=== PATIENT | male | born 1950 | race Caucasian/White ===

== ENCOUNTER 2020-08-25 07:53 | Outpatient (REF) | payer MEDICARE, OTHER, SELFPAY ==
[2020-08-25 09:19] LABS: Hematocrit 42.2 % (42-52); Hemoglobin 14.5 g/dl (14.0-18.0); Mean Corpuscular HGB Conc 34.4 g/dl (31.0-36.0); Mean Corpuscular Hemoglobin 28.9 pg (27.0-33.0); Mean Corpuscular Volume 84.1 fL (80-98); Mean Platelet Volume 11.1 fL (9.4-12.4); Platelet Count 214 X10*3/uL (160-400); Red Blood Count 5.02 X10*6/uL (4.60-5.80); Red Cell Distribution Width 12.7 % (11.0-16.0); White Blood Count 8.1 X10*3/uL (4.8-10.8)
[2020-08-25 09:37] LABS: Estimated Average Glucose 183 mg/dL
[2020-08-25 09:48] LABS: Alanine Aminotransferase 36 U/L (0-40); Albumin Level 4.4 g/dL (3.5-5.0); Alkaline Phosphatase 53 U/L (39-117); Anion Gap 14 (12-20); Aspartate Amino Transferase 19 U/L (5-37); Bilirubin Direct 0.2 mg/dL (0.0-0.5); Bilirubin Total 0.6 mg/dL (0.0-1.0); Blood Urea Nitrogen 18 mg/dL (9-16); Calcium 9.4 mg/dL (8.4-10.2); Carbon Dioxide 29 mmol/L (22-29); Chloride 101 mmol/L (96-108); Cholesterol 133 mg/dL; Estimated Glomerular Filt Rate > 60; Glucose Random 219 mg/dL (60-115); HDL Cholesterol 29 mg/dL; LDL Cholesterol Calculated 69 mg/dl; Potassium 4.6 mmol/l (3.3-5.1); Sodium 139 mmol/L (135-145); Total Protein 6.6 g/dL (6.5-8.0); Triglycerides 175 mg/dL
== END 2020-08-25 07:54 | disposition home or self-care (01) ==
LOC: HO.LAB 07:53
PROVIDERS: Visit Provider Internal Medicine
DX: E11.9 Type 2 diabetes mellitus without complications (principal)
CPT/HCPCS: 36415; 80048; 80061; 80076; 83036; 85027

== ENCOUNTER 2021-02-01 08:05 | Outpatient (REF) | payer MEDICARE, OTHER, SELFPAY ==
[2021-02-01 08:59] LABS: Hematocrit 42.4 % (42-52); Hemoglobin 14.6 g/dl (14.0-18.0); Mean Corpuscular HGB Conc 34.4 g/dl (31.0-36.0); Mean Corpuscular Hemoglobin 29.2 pg (27.0-33.0); Mean Corpuscular Volume 84.8 fL (80-98); Mean Platelet Volume 10.7 fL (9.4-12.4); Platelet Count 209 X10*3/uL (160-400); Red Cell Distribution Width 13.1 % (11.0-16.0); White Blood Count 9.4 X10*3/uL (4.8-10.8)
[2021-02-01 09:20] LABS: Appearance Urine CLEAR; Color Urine YELLOW; Glucose Urine UA NEG (NEG); Leukocyte Esterase Urine NEG (NEG); Nitrite Urine NEG (NEG); Urine Blood NEG (NEG); Urine Ketones NEG (NEG); Urine Protein NEG (NEG-TRACE)
[2021-02-01 09:30] LABS: Estimated Average Glucose 143 mg/dL; Hemoglobin A1c % 6.6 %
[2021-02-01 09:37] LABS: Alanine Aminotransferase 45 U/L (0-40); Albumin Level 4.7 g/dL (3.5-5.0); Alkaline Phosphatase 65 U/L (39-117); Anion Gap 13 (12-20); Aspartate Amino Transferase 27 U/L (5-37); Bilirubin Direct 0.2 mg/dL (0.0-0.5); Bilirubin Total 0.4 mg/dL (0.0-1.0); Blood Urea Nitrogen 23 mg/dL (9-16); Calcium 10.3 mg/dL (8.4-10.2); Carbon Dioxide 28 mmol/L (22-29); Chloride 100 mmol/L (96-108); Cholesterol 113 mg/dL; Estimated Glomerular Filt Rate > 60; Glucose Random 151 mg/dL (60-115); HDL Cholesterol 32 mg/dL; LDL Cholesterol Calculated 64 mg/dl; Potassium 4.2 mmol/L (3.3-5.1); Sodium 137 mmol/L (135-145); Total Protein 6.9 g/dL (6.5-8.0); Triglycerides 88 mg/dL
[2021-02-01 09:57] LABS: Thyroid Stimulating Hormone 2.43 uIU/mL (0.32-4.0)
[2021-02-01 10:36] LABS: Folate 9.9 ng/mL (> or = 4.0); Vitamin B12 229 pg/mL (200-900)
[2021-02-01 10:47] LABS: Creatinine Urine 46.02 mg/dL; Microalbum/Creatinine Ratio Ur 15.2 ug/mg cr
[2021-02-09 14:51] LABS: Vitamin D 25-OH, D2 <4 ng/mL; Vitamin D 25-OH, D3 45 ng/mL; Vitamin D 25-OH, Total 45 ng/mL (30-100)
== END 2021-02-01 08:06 | disposition home or self-care (01) ==
LOC: HO.LAB 08:05
PROVIDERS: PCP Internal Medicine; Visit Provider Internal Medicine
DX: E11.9 Type 2 diabetes mellitus without complications (principal)
CPT/HCPCS: 36415; 80048; 80061; 80076; 81003; 82043; 82306; 82607; 82746; 83036; 84443; 85027

== ENCOUNTER 2021-06-21 08:52 | Outpatient (REF) | payer MEDICARE, OTHER, SELFPAY ==
--- NOTE | ~2021-06-21 | XR_ITS ---
EXAMINATION: XR CHEST CLINICAL INFORMATION: R05.9 - Cough, unspecified COMPARISON: Chest radiograph 12/08/2019 TECHNIQUE: Frontal and 2 lateral views of the chest are obtained for 3 views. FINDINGS: The lungs are clear and there is no airspace consolidation or groundglass opacity or effusion. The heart is normal in size. The vascularity is normal. The hilar and mediastinal contours are normal. No acute bony abnormality. XR/XR chest 2V IMPRESSION: Unremarkable examination.
== END 2021-06-21 08:53 | disposition home or self-care (01) ==
LOC: HO.XRAY 08:52
PROVIDERS: PCP Internal Medicine; Visit Provider Internal Medicine
DX: R05.8 Other specified cough (principal); T46.4X5A Adverse effect of angiotensin-converting-enzyme inhibitors, initial encounter; E11.9 Type 2 diabetes mellitus without complications
CPT/HCPCS: 71046

== ENCOUNTER 2021-12-19 08:18 | Outpatient (REF) | payer MEDICARE, OTHER, SELFPAY ==
[2021-12-19 09:28] LABS: Hematocrit 41.4 % (42.0-52.0); Mean Corpuscular HGB Conc 33.8 g/dl (31.0-36.0); Mean Corpuscular Hemoglobin 27.8 pg (27.0-33.0); Mean Corpuscular Volume 82.1 fL (80.0-98.0); Mean Platelet Volume 10.4 fL (9.4-12.4); Platelet Count 262 X10*3/uL (160-400); Red Blood Count 5.04 X10*6/uL (4.60-5.80); White Blood Count 7.5 X10*3/uL (4.8-10.8)
[2021-12-19 09:44] LABS: Appearance Urine CLEAR; Color Urine YELLOW; Glucose Urine UA 100 MG/DL (NEG); Leukocyte Esterase Urine NEG (NEG); Nitrite Urine NEG (NEG); Specific Gravity - Urine 1.015 (1.005-1.025); Urine Blood NEG (NEG); Urine Ketones NEG (NEG); Urine Protein NEG (NEG-TRACE)
[2021-12-19 10:04] LABS: Alanine Aminotransferase 25 U/L (0-40); Albumin Level 4.2 g/dL (3.5-5.0); Alkaline Phosphatase 57 U/L (39-117); Anion Gap 12 (12-20); Aspartate Amino Transferase 20 U/L (5-37); Bilirubin Direct 0.2 mg/dL (0.0-0.5); Bilirubin Total 0.4 mg/dL (0.0-1.0); Blood Urea Nitrogen 16 mg/dL (9-16); Calcium 9.7 mg/dL (8.4-10.2); Carbon Dioxide 26 mmol/L (22-29); Chloride 105 mmol/L (96-108); Cholesterol 99 mg/dL; Estimated Glomerular Filt Rate > 60; Glucose Random 183 mg/dL (60-115); HDL Cholesterol 24 mg/dL; LDL Cholesterol Calculated 41 mg/dl; Potassium 5.4 mmol/L (3.3-5.1); Sodium 138 mmol/L (135-145); Total Protein 6.8 g/dL (6.5-8.0); Triglycerides 172 mg/dL
[2021-12-19 10:11] LABS: Estimated Average Glucose 160 mg/dL; Hemoglobin A1c % 7.2 %
[2021-12-19 10:22] LABS: Thyroid Stimulating Hormone 4.36 uIU/mL (0.32-4.0)
== END 2021-12-19 08:19 | disposition home or self-care (01) ==
LOC: HO.LAB 08:18
PROVIDERS: PCP Internal Medicine; Visit Provider Internal Medicine
DX: E11.9 Type 2 diabetes mellitus without complications (principal)
CPT/HCPCS: 36415; 80048; 80061; 80076; 81003; 83036; 84443; 85027

== ENCOUNTER 2022-11-26 09:29 | Outpatient (REF) | payer MEDICARE, OTHER, SELFPAY ==
[2022-11-26 10:31] LABS: Hematocrit 42.7 % (42.0-52.0); Hemoglobin 14.5 g/dl (14.0-18.0); Mean Corpuscular Hemoglobin 28.5 pg (27.0-33.0); Mean Corpuscular Volume 83.9 fL (80.0-98.0); Mean Platelet Volume 11.1 fL (9.4-12.4); Platelet Count 211 X10*3/uL (160-400); Red Blood Count 5.09 X10*6/uL (4.60-5.80); White Blood Count 7.4 X10*3/uL (4.8-10.8)
== END 2022-11-26 09:30 | disposition home or self-care (01) ==
LOC: HO.LAB 09:29
PROVIDERS: PCP Internal Medicine; Visit Provider Internal Medicine
DX: E11.9 Type 2 diabetes mellitus without complications (principal)
CPT/HCPCS: 36415; 85027

== ENCOUNTER 2022-11-27 09:23 | Outpatient (REF) | payer MEDICARE, OTHER, SELFPAY ==
[2022-11-27 10:58] LABS: Alanine Aminotransferase 42 U/L (0-40); Albumin Level 4.5 g/dL (3.5-5.0); Alkaline Phosphatase 64 U/L (39-117); Anion Gap 17 (12-20); Aspartate Amino Transferase 22 U/L (5-37); Bilirubin Direct 0.2 mg/dL (0.0-0.5); Bilirubin Total 0.5 mg/dL (0.0-1.0); Blood Urea Nitrogen 18 mg/dL (9-16); Calcium 9.8 mg/dL (8.4-10.2); Carbon Dioxide 23 mmol/L (22-29); Chloride 103 mmol/L (96-108); Cholesterol 107 mg/dL; Estimated Glomerular Filt Rate > 60; Glucose Random 273 mg/dL (60-115); HDL Cholesterol 25 mg/dL; LDL Cholesterol Calculated 36 mg/dl; Potassium 4.7 mmol/L (3.3-5.1); Sodium 138 mmol/L (135-145); Total Protein 6.7 g/dL (6.5-8.0); Triglycerides 232 mg/dL
== END 2022-11-27 09:24 | disposition home or self-care (01) ==
LOC: HO.LAB 09:23
PROVIDERS: PCP Internal Medicine; Visit Provider Internal Medicine
DX: E11.9 Type 2 diabetes mellitus without complications (principal)
CPT/HCPCS: 36415; 80048; 80061; 80076

== ENCOUNTER 2023-01-14 08:33 | Outpatient (REF) | payer MEDICARE, OTHER, SELFPAY ==
[2023-01-14 09:09] LABS: Estimated Average Glucose 174 mg/dL; Hemoglobin A1c % 7.7 %
== END 2023-01-14 08:34 | disposition home or self-care (01) ==
LOC: HO.LAB 08:33
PROVIDERS: PCP Internal Medicine; Visit Provider Internal Medicine
DX: E11.9 Type 2 diabetes mellitus without complications (principal)
CPT/HCPCS: 36415; 83036

== ENCOUNTER 2023-02-06 14:05 | Outpatient (AMB) | payer MEDICARE, OTHER, SELFPAY ==
--- NOTE | 2023-02-06 14:16 | A.OFFPC_ITS ---
Vital Signs 02/06/23 14:19 Height 5 ft 8 in Weight 213 lb 4 oz BMI 32.4 BP 130/70 Blood Pressure Location Lt brachial Position Sitting Pulse 76 Pulse Source Pulse Oximeter Pulse Oximetry (%) 90 L Oxygen Delivery Method Room Air Intake Visit Reasons: 6m f/u Intake Note: Patient is here to follow up on DM. Warehouse Team Leader Required: No Senior Cost Analyst: Not Required per policy Accompanied by: Self / Same As Patient Allergies No Known Allergies [No Known Allergies*] Allergy (Verified 02/21/23 16:46) Medication List - Last Reconciled 02/21/23 by Jem Gonzales MD atorvastatin 10 mg PO BEDTIME blood sugar diagnostic (FreeStyle Lite Strips) test daily blood-glucose meter (FreeStyle Lite Meter kit) test daily empagliflozin (Jardiance) 25 mg PO DAILY glipizide ER 5 mg PO DAILY lancets (FreeStyle Lancets) test daily metformin ER 1,000 mg (2 x 500 mg) PO BID sitagliptin phosphate (Januvia) 50 mg PO DAILY valsartan 80 mg PO DAILY Tobacco use date assessed: 02/06/23 Fall risk assessment: 1 Fall in past year Last assessed Fall Risk: 02/06/23 Dental Screening Dental Screen Date: 02/06/23 Did you have a dental visit in the last 12 months?: No Did you have a dental problem in the last 6 months where you did not have access to dental care?: No Was dental information given to patient?: No HPI 6m f/u HPI Details Patient presents to discuss chronic medical conditions. The last A1c was . Non compliant with medications, diet or exercise. Reports no symptoms of headache, blurred vision or increased frequency of urination. No symptoms of fatigue. No nausea or vomiting. [facility] Medical History Cough due to MELISSA inhibitor Type 2 diabetes mellitus without complications Surgical History History of hernia repair History of tonsillectomy Family History Father Myocardial infarction Mother Pancreatic cancer Brother No problems noted. Sister No problems noted. Daughter In good health Sister No problems noted. Sister No problems noted. Sister No problems noted. Social History (Updated 02/06/23 @ 14:22 by ORA Seth) Housing: House Alcohol intake: never Patient Tobacco Use Status: Current everyday Tobacco user Tobacco use type: Cigarette Cigarette Packs Per Day: 1 Cigarettes Per Day: 20 Years Smoked: one year e-Cigarette/Vaping Use: Never Used Second Hand Smoke Exposure: Yes service: No Current occupational status: retired Cognitive needs: No Hearing needs: No Vision needs: Yes (glasses) Questionnaire PHQ-9 Over the last 2 weeks, how often have you been bothered by any of the following problems? 1. Little interest or pleasure in doing things: not at all 2. Feeling down, depressed, or hopeless: not at all 3. Trouble falling or staying asleep, or sleeping too much: not at all 4. Feeling tired or having little energy: not at all 5. Poor appetite or overeating: not at all 6. Feeling bad about yourself - or that you are a failure or have let yourself or your family down: not at all 7. Trouble concentrating on things, such as reading the newspaper or watching television: not at all 8. Moving or speaking so slowly that other people could have noticed. Or the opposite - being so fidgety or restless that you have been moving around a lot more than usual: not at all 9. Thoughts that you would be better off or of hurting yourself in some way: not at all Total score: 0 Depression Screening Interpretation: Negative Source: Developed by Drs. Chico Lemos, Emerald Knutson, Raymond Palmer and colleagues, with an educational cisco from [employer]. Thrive Questionnaire Date Thrive assessed: 02/06/23 I am a: Patient What is your living situation today?: I have a steady place to live Within the past 12 months, did the food you bought not last and you didn't have the money to get more?: Never true Within the past 12 months, did you worry whether your food would run out before you got money to buy more?: Never true Do you have trouble paying for medicines?: No Do you have trouble getting transportation to medical appointments?: No Do you have trouble paying your heating and electricity bill?: No Do you have trouble taking care of your child, family member or friend?: No Do you have trouble with day-to-day activities such as bathing, preparing meals, shopping, managing finances, etc.?: No Are you currently unemployed and looking for a job?: No Are you interested in more education?: No AUDIT C Alcohol Use Questionnaire (AUDIT-C) 1. How often do you have a drink containing alcohol?: Never Total Score: 0 BRIAN-7 AMB Questionnaire BRIAN-7 Date BRIAN - 7 assessed: 02/06/23 Feeling nervous, anxious, or on edge: 0 = Not at all Not being able to stop or control worryin = Not at all Worrying too much about different things: 0 = Not at all Trouble relaxin = Not at all Being so restless that it is hard to sit still: 0 = Not at all Becoming easily annoyed or irritable: 0 = Not at all Feeling afraid as if something awful might happen: 0 = Not at all Total BRIAN-7 score (0-4 normal; 5-9 mild; 10-14 moderate; 15-21 severe): 0 Source: Developed by Drs. Chico Lemos, Emerald Knutson, Raymond Palmer and colleagues, with an educational cisco from [employer]. Physical exam (Primary Care) Vital Signs: Last Vital Signs Pulse 76 02/06/23 14:19 BP 130/70 02/06/23 14:19 Pulse Ox 90 L 02/06/23 14:19 Oxygen Delivery Method Room Air 02/06/23 14:19 BMI result Body Mass Index 32.4 Tobacco/Smoking Status: Tobacco use Status Tobacco use date assessed 02/06/23 02/06/23 14:25 Patient Tobacco Use Status Current everyday Tobacco 02/06/23 14:22 Tobacco use type Cigarette 02/06/23 14:22 e-Cigarette/Vaping Use Never Used 02/06/23 14:22 PHQ-9: PHQ-9 Score PHQ-9: Total score 0 02/06/23 14:25 Depression Screening Interpretation: Negative Thrive Assessment: Date of Thrive Assessment Date Thrive assessed 02/06/23 02/06/23 14:25 Const General: cooperative, healthy appearing and comfortable HENKS Head: Yes normal to inspection and Yes atraumatic Eyes General: appearance normal, both eyes and all related structures Neck Neck: Yes normal visual inspection and Yes full ROM Resp Effort & Inspection: normal respiratory effort Auscultation: clear to auscultation bilaterally Cardio Jugular venous distension: no JVD Palpation: normal PMI Rate: regular rate Heart sounds: S1 normal heart sound present and S2 normal heart sound present GI Palpation (GI): Soft to palpation and No hepatosplenomegaly present Extrem General: Yes normal to inspection and Yes full ROM Assessment and Plan Assessment & Plan (1) Type 2 diabetes mellitus without complications: Code(s): E11.9 - Type 2 diabetes mellitus without complications Qualifiers: Diabetes mellitus airport baggage screener insulin use: without airport baggage screener use Qualified Code(s): E11.9 - Type 2 diabetes mellitus without complications Plan: Patient was counseled on the importance of diet and exercise. 1800 ADA calorie diet was suggested. Importance of exercise, 30 minutes a day up to 5 days a week. This should include some amount of weight training too. Patient was encouraged to take medications as directed and check blood sugars at least twice a week. Medications: New empagliflozin (Jardiance) 25 mg PO DAILY 90 tabs 1RF Coding Level of Care Code Est Pt Level 4 (85182) Diagnoses Type 2 diabetes mellitus without complications E11.9 Diabetes mellitus airport baggage screener insulin use: without care home use
[2023-02-06 14:19] VITALS: BP 130/70; PULSE 76; O2SAT 90; BMI 32.4
== END 2023-02-06 14:42 | disposition home or self-care (01) ==
PROVIDERS: PCP Internal Medicine; Visit Provider Internal Medicine
DX: E11.9 Type 2 diabetes mellitus without complications (principal)
CPT/HCPCS: 99214

== ENCOUNTER 2023-05-08 09:01 | Outpatient (AMB) | payer MEDICARE, OTHER, SELFPAY ==
--- NOTE | 2023-05-08 09:14 | MHC.PC.OV ---
Vital Signs 05/08/23 09:15 Height 5 ft 8 in Weight 203 lb 8 oz BMI 30.9 BP 110/60 Blood Pressure Location Lt brachial Position Sitting Pulse 69 Pulse Source Pulse Oximeter Pulse Oximetry (%) 96 Oxygen Delivery Method Room Air Intake Visit Reasons: 3mth f/u Intake Note: Patient is here to follow up on DM. Marketing Communication Manager Required: No Control Tower Operator: Not Required per policy Accompanied by: Self / Same As Patient Allergies No Known Allergies [No Known Allergies*] Allergy (Verified 05/08/23 09:39) Medication List - Last Reconciled 05/08/23 by Jem Gonzales MD atorvastatin 10 mg PO BEDTIME blood sugar diagnostic (FreeStyle Lite Strips) test daily blood-glucose meter (FreeStyle Lite Meter kit) test daily empagliflozin (Jardiance) 25 mg PO DAILY glipizide ER 5 mg PO DAILY lancets (FreeStyle Lancets) test daily metformin ER 1,000 mg (2 x 500 mg) PO BID sitagliptin phosphate (Januvia) 50 mg PO DAILY valsartan 80 mg PO DAILY Tobacco use date assessed: 05/08/23 Fall risk assessment: 1 Fall in past year Last assessed Fall Risk: 05/08/23 Dental Screening Dental Screen Date: 05/08/23 Did you have a dental visit in the last 12 months?: No Did you have a dental problem in the last 6 months where you did not have access to dental care?: No Was dental information given to patient?: No HPI 3mth f/u HPI Details 72-year-old male presents to the office to discuss his chronic medical conditions. Patient is compliant with all medications for diabetes. Since last office visit he had a mild Tamra infection on the penis which has since resolved. Blood sugars are in range. He has also lost some weight. Able to function and do all activities of daily living. Patient is reporting persisting shoulder pain. Symptoms are more marked on the left side. [facility] Medical History Cough due to MELISSA inhibitor Type 2 diabetes mellitus without complications Surgical History History of hernia repair History of tonsillectomy Family History Father Myocardial infarction Mother Pancreatic cancer Brother No problems noted. Sister No problems noted. Daughter In good health Sister No problems noted. Sister No problems noted. Sister No problems noted. Social History Housing: House Alcohol intake: never Patient Tobacco Use Status: Current everyday Tobacco user Tobacco use type: Cigarette Cigarette Packs Per Day: 1 Cigarettes Per Day: 20 Years Smoked: one year e-Cigarette/Vaping Use: Never Used Second Hand Smoke Exposure: Yes service: No Current occupational status: retired Cognitive needs: No Hearing needs: No Vision needs: Yes (glasses) Questionnaire Thrive Questionnaire Date Thrive assessed: 02/06/23 BRIAN-7 AMB Questionnaire BRIAN-7 Date BRIAN - 7 assessed: 02/06/23 Source: Developed by Drs. Chico Lemos, Emerald Knutson, Raymond Palmer and colleagues, with an educational cisco from [employer]. Physical exam (Primary Care) Vital Signs: Last Vital Signs Pulse 69 05/08/23 09:15 BP 110/60 05/08/23 09:15 Pulse Ox 96 05/08/23 09:15 Oxygen Delivery Method Room Air 05/08/23 09:15 BMI result Body Mass Index 30.9 Tobacco/Smoking Status: Tobacco use Status Tobacco use date assessed 05/08/23 05/08/23 09:22 Patient Tobacco Use Status Current everyday Tobacco 05/08/23 09:22 Tobacco use type Cigarette 05/08/23 09:22 e-Cigarette/Vaping Use Never Used 05/08/23 09:22 Thrive Assessment: Date of Thrive Assessment Date Thrive assessed 02/06/23 05/08/23 09:22 Const General: cooperative and healthy appearing Nutritional Appearance: well nourished Orientation/consciousness: patient oriented x3 Limitations: no limitations HENMT Head: Yes normal to inspection Eyes General: appearance normal, both eyes and all related structures Neck Neck: Yes normal visual inspection Chest Chest palpation & inspection: normal palpation of entire chest wall Resp Effort & Inspection: normal respiratory effort Neuro General: patient oriented x3 Results AMB Hemoglobin A1c AMB Hemoglobin A1c 6.4 % Last Edit by ORA Seth on 05/08/23 09:29 Results Reviewed Results Reviewed: Laboratory Last Values Hgb A1c (Clinic) 6.4 % (4.0-6.0) H 05/08/23 09:13 Assessment and Plan Assessment & Plan (1) Type 2 diabetes mellitus without complications: Code(s): E11.9 - Type 2 diabetes mellitus without complications Qualifiers: Diabetes mellitus fdc insulin use: without fdc use Qualified Code(s): E11.9 - Type 2 diabetes mellitus without complications Plan: A1c is in range. It has come down to 6.4 from 6.7. Continue current medications. (2) Tobacco use disorder: Code(s): F17.200 - Nicotine dependence, unspecified, uncomplicated Plan: Counseling to quit smoking done. (3) Sprain of left shoulder: Code(s): S43.402A - Unspecified sprain of left shoulder joint, initial encounter Plan: X-ray of the left shoulder ordered. Will call with results. Orders: Orders AMB Hemoglobin A1c Today E11.9 - Type 2 diabetes mellitus without complications XR shoulder LT min 2V Today S43.402A - Unspecified sprain of left shoulder joint, initial encounter Coding Level of Care Code Est Pt Level 4 (46680) Diagnoses Type 2 diabetes mellitus without complication, without long-term current use of insulin E11.9 Diabetes mellitus intermediate project manager insulin use: without intermediate project manager use Tobacco use disorder F17.200 Sprain of left shoulder S43.402A
[2023-05-08 09:15] VITALS: BP 110/60; PULSE 69; O2SAT 96; BMI 30.9
== END 2023-05-08 09:42 | disposition home or self-care (01) ==
PROVIDERS: PCP Internal Medicine; Visit Provider Internal Medicine
DX: E11.9 Type 2 diabetes mellitus without complications (principal); F17.200 Nicotine dependence, unspecified, uncomplicated; S43.402A Unspecified sprain of left shoulder joint, initial encounter
CPT/HCPCS: 83036; 99214

== ENCOUNTER 2023-05-08 09:52 | Outpatient (REF) | payer MEDICARE, OTHER, SELFPAY ==
--- NOTE | ~2023-05-08 | XR_ITS ---
EXAMINATION: XR SHOULDER, LEFT CLINICAL INFORMATION: Sprain injury. COMPARISON: None available. TECHNIQUE: AP external rotation, Grashey, scapular Y, and axillary views of the left shoulder. FINDINGS: Bony alignment and mineralization are normal. The glenohumeral joint is intact and shows mild osteoarthritic change. The acromioclavicular and coracoclavicular intervals are normal. There is mild osteoarthritic change of the acromioclavicular joint. No fracture or dislocation is seen. There is no abnormal soft tissue calcification or foreign body. No left pneumothorax is seen. XR/XR shoulder LT min 2V IMPRESSION: 1. No fracture or dislocation is seen. 2. There is mild osteoarthritic change of the left acromioclavicular and glenohumeral joints.
== END 2023-05-08 09:53 | disposition home or self-care (01) ==
LOC: HO.XRAY 09:52
PROVIDERS: PCP Internal Medicine; Visit Provider Internal Medicine
DX: S43.402A Unspecified sprain of left shoulder joint, initial encounter (principal)
CPT/HCPCS: 73030

== ENCOUNTER 2023-11-19 09:26 | Outpatient (AMB) | payer MEDICARE, OTHER, SELFPAY ==
--- NOTE | 2023-11-19 09:29 | MHC.PC.OV ---
Vital Signs 11/19/23 09:32 Height 5 ft 8 in Weight 198 lb 2 oz BMI 30.1 BP 120/64 Blood Pressure Location Lt brachial Position Sitting Pulse 70 Pulse Source Pulse Oximeter Pulse Oximetry (%) 96 Oxygen Delivery Method Room Air Intake Visit Reasons: f/u Intake Note: Patient is here to follow up on DM. Railroad Design Consultant Required: No Forensic Pathologist: Not Required per policy Accompanied by: Self / Same As Patient Allergies No Known Allergies [No Known Allergies*] Allergy (Verified 11/19/23 10:53) Medication List - Last Reconciled 11/19/23 by Jem Gonzales MD atorvastatin 10 mg PO BEDTIME blood sugar diagnostic (FreeStyle Lite Strips) test daily blood-glucose meter (FreeStyle Lite Meter kit) test daily empagliflozin (Jardiance) 25 mg PO DAILY lancets (FreeStyle Lancets) test daily metformin ER 1,000 mg (2 x 500 mg) PO BID sitagliptin phosphate (Januvia) 50 mg PO DAILY valsartan 80 mg PO DAILY Tobacco use date assessed: 11/19/23 Fall risk assessment: No Falls in past year Last assessed Fall Risk: 11/19/23 Dental Screening Dental Screen Date: 11/19/23 Did you have a dental visit in the last 12 months?: No Did you have a dental problem in the last 6 months where you did not have access to dental care?: No Was dental information given to patient?: No HPI f/u HPI Details 73-year-old male presents to the office to discuss his chronic medical conditions. Patient is at baseline state of health. Able to function and do all activities of daily living. Patient is compliant with medications and reporting no side effects. Patient continues to drive and is able to drive at night. [facility] Medical History Cough due to MELISSA inhibitor Type 2 diabetes mellitus without complications Surgical History History of hernia repair History of tonsillectomy Family History Father Myocardial infarction Mother Pancreatic cancer Brother No problems noted. Sister No problems noted. Daughter In good health Sister No problems noted. Sister No problems noted. Sister No problems noted. Social History Housing: House Alcohol intake: never Patient Tobacco Use Status: Current everyday Tobacco user Tobacco use type: Cigarette Cigarette Packs Per Day: 1 Cigarettes Per Day: 20 Years Smoked: one year e-Cigarette/Vaping Use: Never Used Second Hand Smoke Exposure: Yes service: No Current occupational status: retired Cognitive needs: No Hearing needs: No Vision needs: Yes (glasses) Questionnaire PHQ-9 Over the last 2 weeks, how often have you been bothered by any of the following problems? 1. Little interest or pleasure in doing things: not at all 2. Feeling down, depressed, or hopeless: not at all 3. Trouble falling or staying asleep, or sleeping too much: not at all 4. Feeling tired or having little energy: not at all 5. Poor appetite or overeating: not at all 6. Feeling bad about yourself - or that you are a failure or have let yourself or your family down: not at all 7. Trouble concentrating on things, such as reading the newspaper or watching television: not at all 8. Moving or speaking so slowly that other people could have noticed. Or the opposite - being so fidgety or restless that you have been moving around a lot more than usual: not at all 9. Thoughts that you would be better off or of hurting yourself in some way: not at all Total score: 0 Depression Screening Interpretation: Negative Depression Screening Done: Yes Source: Developed by Drs. Chico Lemos, Emerald Knutson, Raymond Palmer and colleagues, with an educational [employer] from [employer]. Thrive Questionnaire Date Thrive assessed: 11/19/23 I am a: Patient What is your living situation today?: I have a steady place to live Within the past 12 months, did the food you bought not last and you didn't have the money to get more?: Never true Within the past 12 months, did you worry whether your food would run out before you got money to buy more?: Never true Do you have trouble paying for medicines?: No Do you have trouble getting transportation to medical appointments?: No Do you have trouble paying your heating and electricity bill?: No Do you have trouble taking care of your child, family member or friend?: No Do you have trouble with day-to-day activities such as bathing, preparing meals, shopping, managing finances, etc.?: No Are you currently unemployed and looking for a job?: No Are you interested in more education?: No Currently or been in a relationship where the following occur: no concerns reported THRIVE Score: 0 AUDIT C Alcohol Use Questionnaire (AUDIT-C) 1. How often do you have a drink containing alcohol?: Never Total Score: 0 BRIAN-7 AMB Questionnaire BRIAN-7 Date BRIAN - 7 assessed: 11/19/23 Feeling nervous, anxious, or on edge: 0 = Not at all Not being able to stop or control worryin = Not at all Worrying too much about different things: 0 = Not at all Trouble relaxin = Not at all Being so restless that it is hard to sit still: 0 = Not at all Becoming easily annoyed or irritable: 0 = Not at all Feeling afraid as if something awful might happen: 0 = Not at all Total BRIAN-7 score (0-4 normal; 5-9 mild; 10-14 moderate; 15-21 severe): 0 Source: Developed by Drs. Chico Lemos, Emerald Knutson, Raymond Palmer and colleagues, with an educational cisco from [employer]. Physical exam (Primary Care) Vital Signs: Last Vital Signs Pulse 70 11/19/23 09:32 BP 120/64 11/19/23 09:32 Pulse Ox 96 11/19/23 09:32 Oxygen Delivery Method Room Air 11/19/23 09:32 Care Plan Goal for BP management: Blood pressure is in range. Continue medications at same dosage. BMI result Body Mass Index 30.1 BMI Assessment/Plan discussion: High (1 lb per week weight loss suggested.) BMI High, discussed plan: lifestyle, weight reduction and dietary Tobacco/Smoking Status: Tobacco use Status Tobacco use date assessed 11/19/23 11/19/23 09:39 Patient Tobacco Use Status Current everyday Tobacco 11/19/23 09:39 Tobacco use type Cigarette 11/19/23 09:39 e-Cigarette/Vaping Use Never Used 11/19/23 09:39 Are you ready to quit: No Tobacco cessation counseling provided: No PHQ-9: PHQ-9 Score PHQ-9: Total score 0 11/19/23 09:39 Depression Screening Interpretation: Negative Thrive Assessment: Date of Thrive Assessment Date Thrive assessed 11/19/23 11/19/23 09:39 Currently or been in a relationship where the following occur: no concerns reported Advance Care Planning discussion: Exists, not on file Date of discussion: 11/19/23 Who was present: Patient Forms completed: Health Care Proxy and [facility] Actual minutes spent: 5 Const General: cooperative and healthy appearing Nutritional Appearance: well nourished Orientation/consciousness: patient oriented x3 Limitations: no limitations HENMT Head: Yes normal to inspection Eyes General: appearance normal, both eyes and all related structures Neck Neck: Yes normal visual inspection Chest Chest palpation & inspection: normal palpation of entire chest wall Resp Effort & Inspection: normal respiratory effort Neuro General: patient oriented x3 Results AMB Hemoglobin A1c AMB Hemoglobin A1c 6.1 % Last Edit by ORA Seth on 11/19/23 09:48 Results Reviewed Results Reviewed: Laboratory Last Values Hgb A1c (Clinic) 6.1 % (4.0-6.0) H 11/19/23 09:29 Assessment and Plan Assessment & Plan (1) Type 2 diabetes mellitus without complications: Code(s): E11.9 - Type 2 diabetes mellitus without complications Qualifiers: Diabetes mellitus terminal make up operator insulin use: without longterm use Qualified Code(s): E11.9 - Type 2 diabetes mellitus without complications Plan: A1c is 6.1. Patient is on for antidiabetic medications. Glipizide has been discontinued. Patient was encouraged to continue exercise and compliance. (2) Tobacco use disorder: Code(s): F17.200 - Nicotine dependence, unspecified, uncomplicated Plan: Patient was encouraged to quit smoking. Orders: Orders Liver Panel Today E11.9 - Type 2 diabetes mellitus without complications Thyroid Stimulating Hormone Today E11.9 - Type 2 diabetes mellitus without complications Microalbumin, Random (w Creat) Today E11.9 - Type 2 diabetes mellitus without complications UA and rflx microscopic Today E11.9 - Type 2 diabetes mellitus without complications AMB Hemoglobin A1c Today E11.9 - Type 2 diabetes mellitus without complications Basic Metabolic Panel Today E11.9 - Type 2 diabetes mellitus without complications Complete Blood Count no Diff Today E11.9 - Type 2 diabetes mellitus without complications Lipid Panel Today E11.9 - Type 2 diabetes mellitus without complications Medications: Refilled empagliflozin (Jardiance) 25 mg PO DAILY 90 tabs 1RF sitagliptin phosphate (Januvia) 50 mg PO DAILY 90 tabs 1RF valsartan 80 mg PO DAILY 90 tabs 1RF atorvastatin 10 mg PO BEDTIME 90 tabs 1RF metformin ER 1,000 mg (2 x 500 mg) PO BID 360 tabs 1RF Discontinued glipizide ER Discontinued Reason: Doctor's Order 5 mg PO DAILY 90 tabs 1RF Coding Level of Care Code Est Pt Level 3 (46058) Diagnoses Type 2 diabetes mellitus without complication, without long-term current use of insulin E11.9 Diabetes mellitus terminal make up operator insulin use: without terminal make up operator use Tobacco use disorder F17.200 Additional Codes Vital Signs *Quality* - Advance Care Planning discussion: Exists, not on file ([id number])
[2023-11-19 09:32] VITALS: BP 120/64; PULSE 70; O2SAT 96; BMI 30.1
== END 2023-11-19 10:54 | disposition home or self-care (01) ==
PROVIDERS: PCP Internal Medicine; Visit Provider Internal Medicine
DX: E11.9 Type 2 diabetes mellitus without complications (principal); F17.200 Nicotine dependence, unspecified, uncomplicated; Z00.00 Encounter for general adult medical examination without abnormal findings
CPT/HCPCS: 1123F; 83036; 99213

== ENCOUNTER 2024-04-20 08:51 | Outpatient (REF) | payer MEDICARE, OTHER, SELFPAY ==
[2024-04-20 09:26] LABS: Hematocrit 46.8 % (42.0-52.0); Hemoglobin 15.7 g/dl (14.0-18.0); Mean Corpuscular HGB Conc 33.5 g/dl (31.0-36.0); Mean Corpuscular Hemoglobin 28.6 pg (27.0-33.0); Mean Corpuscular Volume 85.4 fL (80.0-98.0); Mean Platelet Volume 10.3 fL (9.4-12.4); Platelet Count 210 X10*3/uL (160-400); Red Blood Count 5.48 X10*6/uL (4.60-5.80); Red Cell Distribution Width 13.2 % (11.0-16.0); White Blood Count 10.6 X10*3/uL (4.8-10.8)
[2024-04-20 09:53] LABS: Appearance Urine Clear; Color Urine Yellow; Glucose Urine UA >=1000 mg/dL (Negative); Leukocyte Esterase Urine Negative (Negative); Nitrite Urine Negative (Negative); Specific Gravity - Urine >= 1.030 (1.005-1.025); UMIC TRIGGER UA YES; Urine Blood Negative (Negative); Urine Ketones Negative (Negative); Urine Protein Negative (Neg-Trace)
[2024-04-20 10:05] LABS: Bacteria Urine None Seen (None Seen); Hyaline Casts Urine 0-2 /LPF (0-2); RBC Urine 0-2 /HPF (0-2); Squamous Epithelial Cell Urine 0-2 /HPF (0-2); WBC Urine 0-5 /HPF (0-5)
[2024-04-20 10:24] LABS: Creatinine Urine 50.91 mg/dL; Microalbum/Creatinine Ratio Ur 15.7 ug/mg cr (<30)
[2024-04-20 10:42] LABS: Alanine Aminotransferase 21 U/L (0-40); Albumin Level 4.4 g/dL (3.5-5.0); Alkaline Phosphatase 68 U/L (39-117); Anion Gap 13 (12-20); Aspartate Amino Transferase 14 U/L (5-37); Bilirubin Direct 0.1 mg/dL (0.0-0.5); Bilirubin Total 0.3 mg/dL (0.0-1.0); Blood Urea Nitrogen 17 mg/dL (9-16); Carbon Dioxide 24 mmol/L (22-29); Chloride 107 mmol/L (96-108); Cholesterol 101 mg/dL (<200); Estimated Glomerular Filt Rate > 60; Glucose Random 159 mg/dL (60-115); HDL Cholesterol 32 mg/dL (>40); LDL Cholesterol Calculated 53 mg/dL (<100); Potassium 4.2 mmol/L (3.3-5.1); Sodium 140 mmol/L (135-145); Total Protein 6.9 g/dL (6.5-8.0); Triglycerides 80 mg/dL (<150)
[2024-04-20 10:44] LABS: Thyroid Stimulating Hormone 3.47 uIU/mL (0.32-4.0)
== END 2024-04-20 08:52 | disposition home or self-care (01) ==
LOC: HO.LAB 08:51
PROVIDERS: PCP Internal Medicine; Visit Provider Internal Medicine
DX: E11.9 Type 2 diabetes mellitus without complications (principal)
CPT/HCPCS: 36415; 80048; 80061; 80076; 81001; 82043; 82570; 84443; 85027

== ENCOUNTER 2024-07-14 14:33 | Outpatient (AMB) | payer MEDICARE, OTHER, SELFPAY ==
[2024-07-14 14:47] VITALS: BP 148/62; PULSE 69; O2SAT 97; BMI 28.7
--- NOTE | 2024-07-14 14:47 | A.OFFPC_ITS ---
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 Sister No problems noted. Daughter In good health Sister No problems noted. Sister No problems noted. Sister No problems noted. Social History Housing: House Alcohol intake: never Patient Tobacco Use Status: Current everyday Tobacco user Tobacco use type: Cigarette Cigarette Packs Per Day: 1 Cigarettes Per Day: 20 Years Smoked: one year e-Cigarette/Vaping Use: Never Used Second Hand Smoke Exposure: Yes service: No Current occupational status: retired Cognitive needs: No Hearing needs: No Vision needs: Yes (glasses) Questionnaire Thrive Questionnaire Date Thrive assessed: 11/19/23 BRIAN-7 AMB Questionnaire BRIAN-7 Date BRIAN - 7 assessed: 11/19/23 Source: Developed by Drs. Chico Lemos, Emerald Knutson, Raymond Palmer and colleagues, with an educational cisco from [employer]. Physical exam (Primary Care) Vital Signs: Last Vital Signs Pulse 69 07/14/24 14:47 BP 148/62 H 07/14/24 14:47 Pulse Ox 97 07/14/24 14:47 Oxygen Delivery Method Room Air 07/14/24 14:47 BMI result Body Mass Index 28.7 Tobacco/Smoking Status: Tobacco use Status Tobacco use date assessed 11/19/23 07/14/24 14:48 Patient Tobacco Use Status Current everyday Tobacco 07/14/24 14:48 Tobacco use type Cigarette 07/14/24 14:48 e-Cigarette/Vaping Use Never Used 07/14/24 14:48 Thrive Assessment: Date of Thrive Assessment Date Thrive assessed 11/19/23 07/14/24 14:48 Coding Level of Care Code Est Pt Level 4 (24810) Complex EM visit Add On G2211 Diagnoses Type 2 diabetes mellitus without complication, without long-term current use of insulin E11.9 Diabetes mellitus termite control service representative insulin use: without termite control service representative use Obesity (BMI 30.0-34.9) E66.9 Assessment & Plan Assessment & Plan (1) Type 2 diabetes mellitus without complications: Code(s): E11.9 - Type 2 diabetes mellitus without complications Category: Medical Qualifiers: Diabetes mellitus termite control service representative insulin use: without half-way use Qualified Code(s): E11.9 - Type 2 diabetes mellitus without complications (2) Obesity (BMI 30.0-34.9): Code(s): E66.9 - Obesity, unspecified Category: Medical Plan History of Present Illness The patient is a 73-year-old male presenting with a request for a wellness visit and management of chronic conditions including Type 2 Diabetes Mellitus. His diabetes is currently controlled with a recent Hemoglobin A1c reading of 6.9. The patient is adhering to his prescribed medications and reports efforts to maintain an active lifestyle through walking, aiming for 10,000 steps per day, and performing light weightlifting. He has not had an ophthalmologic examination recently and is advised to make an appointment for his diabetic retinopathy screening. There is a history of routine colonoscopy performed approximately three to four years ago, which was unremarkable, showing no polyps. The patient has not received his influenza vaccination this season. He reports sleep disturbances, including tossing and turning, but does not feel tired upon waking and maintains his routine of rising early around 6 AM. He also mentions a slow urinary stream without increased frequency or pain. Social History - Regular physical activity, aiming for 10,000 steps daily and incorporating light weightlifting. - Recently lost weight, indicating attention to nutritional intake and weight management. Review of Systems - General: Reports good health overall, with recent weight loss. - Ophthalmologic: Denies halos around lights, endorses need for vision examination. - Genitourinary: Reports slow urinary stream; denies frequent urination or pain. Physical Exam General: Cooperative and healthy appearing Nutritional Appearance: Well nourished Orientation/consciousness: Patient oriented x3 Limitations: No limitations Head: Normal to inspection General: Appearance normal, both eyes and all related structures Neck: Normal visual inspection Chest: Normal palpation of entire chest wall Respiratory: Normal respiratory effort Neurology: Patient oriented x3 Results - Labs: Hemoglobin A1c is 6.9. Plan - Diabetes Mellitus Type 2: Continue current medications. Schedule an appointment with an electric scoop operator for diabetic eye examination. Monitor blood glucose levels regularly. - Vision impairment concerns: Advise scheduling an eye examination for diabetic retinopathy screening and general vision assessment. - Urinary hesitancy: Monitor symptoms and consider further evaluation if changes occur. - Preventative Care: Recommend receiving the influenza vaccination. Follow up in six months for routine health maintenance. Patient was informed and verbally consented to the use of an ambient scribe for clinic note documentation during this visit. Discussion Notes I discussed with the patient the importance of ongoing diabetic management, including regular monitoring of blood glucose levels and maintaining current treatment regimens. The patient understands the necessity of a yearly eye examination due to diabetes and agreed to schedule an appointment with an electric scoop operator. We also discussed the benefits of receiving the annual flu vaccine, particularly at his age. I acknowledged his efforts in physical fitness and weight management and endorsed continued activity as it contributes to overall health. The patient was advised to remain vigilant regarding any changes in urinary patterns, although current symptoms do not necessitate immediate co ncern. Patient Instructions - Continue taking all prescribed diabetes medications as directed. - Arrange for an eye examination to check for diabetic retinopathy. - Schedule an appointment to receive an influenza vaccination. - Maintain physical activity, aiming for 10,000 steps daily, and continue light weightlifting exercises. - Monitor urinary symptoms and report any significant changes. - Follow up in six months for routine assessment and management. Orders: Orders Influenza 3567-2007 Immunization Today Z23 - Encounter for immunization AMB Hemoglobin A1c Today E11.9 - Type 2 diabetes mellitus without complications Medications: New Fluarix Triv [id number] (PF) (flu vacc [id number] 6mos up(PF)) 0.5 mL IM ONCE 0.5 mL 0RF NS Z23 - Encounter for immunization
== END 2024-07-14 15:03 | disposition home or self-care (01) ==
PROVIDERS: PCP Internal Medicine; Visit Provider Internal Medicine
DX: E11.9 Type 2 diabetes mellitus without complications (principal); E66.9 Obesity, unspecified; Z68.28 Body mass index [BMI] 28.0-28.9, adult

== ENCOUNTER → 2024-07-14 14:33 | Outpatient (BNVA) | payer MEDICARE, OTHER, SELFPAY | PROVIDERS: PCP Internal Medicine; Visit Provider Internal Medicine | DX: E11.9 Type 2 diabetes mellitus without complications (principal); E66.9 Obesity, unspecified; Z68.28 Body mass index [BMI] 28.0-28.9, adult; Z71.3 Dietary counseling and surveillance | CPT/HCPCS: 83036; 99212 ==

== ENCOUNTER 2025-01-20 08:42 | Outpatient (AMB) | payer MEDICARE, OTHER, SELFPAY ==
--- NOTE | 2025-01-20 08:56 | A.OFFPC_ITS ---
Vital Signs 01/20/25 08:58 Height 5 ft 8 in Weight 187 lb BMI 28.4 BP 130/66 Blood Pressure Location Lt brachial Position Sitting Pulse 65 Pulse Source Pulse Oximeter Temp 97.3 F Temp Source Temporal Artery Scan Pulse Oximetry (%) 94 Oxygen Delivery Method Room Air Intake Visit Reasons: 6 month f/u Intake Note: Patient is here to follow up on DM, Obesity. 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 Division Director: Not Required per policy Accompanied by: Self / Same As Patient Allergies No Known Allergies [No Known Allergies*] Allergy (Verified 01/20/25 08:57) Tobacco use date assessed: 01/20/25 Fall risk assessment: No Falls in past year Last assessed Fall Risk: 01/20/25 Dental Screening Dental Screen Date: 01/20/25 Did you have a dental visit in the last 12 months?: No Did you have a dental problem in the last 6 months where you did not have access to dental care?: No Was dental information given to patient?: Patient declined [facility] Medical History Cough due to MELISSA inhibitor Type 2 diabetes mellitus without complications Surgical History History of colonoscopy (~01/14/19) History of hernia repair History of tonsillectomy Family History Father Myocardial infarction Mother Pancreatic cancer Brother No problems noted. Sister No problems noted. Daughter In good health Sister No problems noted. Sister No problems noted. Sister No problems noted. Social History Housing: House Alcohol intake: never Patient Tobacco Use Status: Current everyday Tobacco user Tobacco use type: Cigarette Cigarette Packs Per Day: 1 Cigarettes Per Day: 20 Years Smoked: one year e-Cigarette/Vaping Use: Never Used Second Hand Smoke Exposure: Yes service: No Current occupational status: retired Cognitive needs: No Hearing needs: No Vision needs: Yes (glasses) Questionnaire PHQ-9 Over the last 2 weeks, how often have you been bothered by any of the following problems? 1. Little interest or pleasure in doing things: not at all 2. Feeling down, depressed, or hopeless: not at all 3. Trouble falling or staying asleep, or sleeping too much: not at all 4. Feeling tired or having little energy: not at all 5. Poor appetite or overeating: not at all 6. Feeling bad about yourself - or that you are a failure or have let yourself or your family down: not at all 7. Trouble concentrating on things, such as reading the newspaper or watching television: not at all 8. Moving or speaking so slowly that other people could have noticed. Or the opposite - being so fidgety or restless that you have been moving around a lot more than usual: not at all 9. Thoughts that you would be better off or of hurting yourself in some way: not at all Total score: 0 Depression Screening Interpretation: Negative Depression Screening Done: Yes Source: Developed by Drs. Chico Lemos, Emerald Knutson, Raymond Palmer and colleagues, with an educational cisco from [employer]. Thrive Questionnaire Date Thrive assessed: 01/13/25 I am a: Patient What is your living situation today?: I have a steady place to live Within the past 12 months, did the food you bought not last and you didn't have the money to get more?: Never true Within the past 12 months, did you worry whether your food would run out before you got money to buy more?: Never true Do you have trouble paying for medicines?: No Do you have trouble getting transportation to medical appointments?: No Do you have trouble paying your heating and electricity bill?: No Do you have trouble taking care of your child, family member or friend?: No Do you have trouble with day-to-day activities such as bathing, preparing meals, shopping, managing finances, etc.?: No Are you currently unemployed and looking for a job?: No Are you interested in more education?: No Please select the resources that you would like help with: None Currently or been in a relationship where the following occur: No concerns reported THRIVE Score: 0 AUDIT C Alcohol Use Questionnaire (AUDIT-C) 1. How often do you have a drink containing alcohol?: Monthly or less 2. How many drinks containing alcohol do you have on a typical day when you are drinking?: 1 or 2 3. How often do you have six or more drinks on one occasion?: Never Total Score: 1 BRIAN-7 AMB Questionnaire BRIAN-7 Date BRIAN - 7 assessed: 01/20/25 Feeling nervous, anxious, or on edge: 0 = Not at all Not being able to stop or control worryin = Not at all Worrying too much about different things: 0 = Not at all Trouble relaxin = Not at all Being so restless that it is hard to sit still: 0 = Not at all Becoming easily annoyed or irritable: 0 = Not at all Feeling afraid as if something awful might happen: 0 = Not at all Total BRINA-7 score (0-4 normal; 5-9 mild; 10-14 moderate; 15-21 severe): 0 Source: Developed by Drs. Chico Lemos, Emerald Knutson, Raymond Palmer and colleagues, with an educational cisco from [employer]. Physical exam (Primary Care) Vital Signs: Last Vital Signs Temp 97.3 F 01/20/25 08:58 Pulse 65 01/20/25 08:58 BP 130/66 01/20/25 08:58 Pulse Ox 94 01/20/25 08:58 Oxygen Delivery Method Room Air 01/20/25 08:58 BMI result Body Mass Index 28.4 Tobacco/Smoking Status: Tobacco use Status Tobacco use date assessed 01/20/25 01/20/25 09:04 Patient Tobacco Use Status Current everyday Tobacco 01/20/25 09:04 Tobacco use type Cigarette 01/20/25 09:04 e-Cigarette/Vaping Use Never Used 01/20/25 09:04 Are you ready to quit: No PHQ-9: PHQ-9 Score PHQ-9: Total score 0 01/20/25 09:04 Depression Screening Interpretation: Negative Thrive Assessment: Date of Thrive Assessment Date Thrive assessed 01/13/25 01/20/25 09:04 Currently or been in a relationship where the following occur: No concerns reported Advance Care Planning discussion: Exists, not on file Date of discussion: 01/20/25 Who was present: Patient Forms completed: Health Care Proxy and MOLST Time spent: 1-15 minutes, not on file Actual minutes spent: 5 Results AMB Hemoglobin A1c AMB Hemoglobin A1c 6.6 % Last Edit by ORA Seth on 01/20/25 09:08 Results Reviewed Results Reviewed: Laboratory Last Values Hgb A1c (Clinic) 6.6 % (4.0-6.0) H 01/20/25 08:56 Coding Level of Care Code Est Pt Level 4 (09798) Complex EM visit Add On G2211 Diagnoses Type 2 diabetes mellitus without complication, without long-term current use of insulin E11.9 Diabetes mellitus review analyst insulin use: without nursing home use Additional Codes Vital Signs *Quality* - Advance Care Planning discussion: Exists, not on file ([id number]) Vital Signs *Quality* - Time spent: 1-15 minutes, not on file ([id number]) Assessment & Plan Assessment & Plan (1) Type 2 diabetes mellitus without complications: Code(s): E11.9 - Type 2 diabetes mellitus without complications Category: Medical Qualifiers: Diabetes mellitus review analyst insulin use: without nursing home use Qualified Code(s): E11.9 - Type 2 diabetes mellitus without complications Plan: A1c in range. Continue current medications. Plan History of Present Illness - The patient is a 74-year-old male presenting for a wellness visit and management of diabetes. - The patient has successfully been managing his Type 2 Diabetes Mellitus and reports that the current management approach has been beneficial. - Blood work is planned to further evaluate and monitor diabetes control. - The patient discusses his proactive approach to medication management using online pharmacy services and recently required authorization for refills, an issue being handled through the clinic. - He emphasizes regular exercise and dietary management as contributing to a slight decrease in weight. - The patient reiterates that he leads a busy life with minor aches and pains typical of aging, without any significant complaints. - Additionally, he shows interest in trying Glycoshield, a non-prescription supplement with potential benefits in lowering A1c levels. Social History - The patient remains active and reports a lifestyle that keeps him always on the move. - He actively monitors dietary intake to manage diabetes, endorsing exercise as a routine activity. - The patient acknowledges having a living will and healthcare proxy in place, indicating expressed concerns about his future health directives. Review of Systems - General: Denies any pain at the time of visit. - Musculoskeletal: Reports occasional aches and pains consistent with aging. - Endocrine: Reports managing diabetes effectively with current measures. Physical Exam General: Cooperative and healthy appearing Nutritional Appearance: Well nourished Orientation/consciousness: Patient oriented x3 Limitations: No limitations Head: Normal to inspection General: Appearance normal, both eyes and all related structures Neck: Normal visual inspection Chest: Normal palpation of entire chest wall Respiratory: N ormal respiratory effort Neurology: Patient oriented x3, no pain at this time Results - Labs: Hemoglobin A1c reported as 6.8. Plan 1. Type 2 Diabetes Mellitus - Routine blood work will be scheduled to monitor diabetes control. - Continue current effective management and encourage continuation of beneficial lifestyle changes. - The patient will use Glycoshield as an optional addition to his regimen; he is informed about its non-prescription status and potential benefits. - Instructions provided for fasting prior to upcoming lab work. Discussion Notes During the visit, we discussed the patient's effective management of his Type 2 Diabetes Mellitus and the importance of routine blood work to evaluate progress. The patient is maintaining a healthy lifestyle through diet and exercise, which has led to a slight weight loss and improved diabetes control, as evidenced by his current A1c. We addressed his concern about medication refills through an online pharmacy service, ensuring our office directly helps in facilitating necessary approvals. We explored the potential benefits of Glycoshield, an extract from cinnamon, which may assist in further lowering A1c levels. The patient understands the product is non-prescriptive and optional. I also advised on fasting before his next blood work to ensure accuracy. Patient Instructions - Complete fasting starting at midnight prior to scheduled lab tests. - Continue current diabetes management and lifestyle practices. - Maintain regular exercise and dietary monitoring. - Consider trying Glycoshield following understanding of its [id number]-suwyahl nature. - Contact the office should any concerns or medication issues arise. Orders: Orders AMB Hemoglobin A1c Today E11.9 - Type 2 diabetes mellitus without complications Basic Metabolic Panel Today E11.9 - Type 2 diabetes mellitus without complications Thyroid Stimulating Hormone Today E11.9 - Type 2 diabetes mellitus without complications UA and rflx microscopic Today E11.9 - Type 2 diabetes mellitus without complications Microalbumin, Random (w Creat) Today E11.9 - Type 2 diabetes mellitus without complications Complete Blood Count no Diff Today E11.9 - Type 2 diabetes mellitus without co mplications Lipid Panel Today E11.9 - Type 2 diabetes mellitus without complications Liver Panel Today E11.9 - Type 2 diabetes mellitus without complications Medications: Refilled valsartan 80 mg PO DAILY 90 tabs 3RF empagliflozin (Jardiance) 25 mg PO DAILY 90 tabs 3RF
[2025-01-20 08:58] VITALS: BP 130/66; PULSE 65; TEMP 36.3; O2SAT 94; BMI 28.4
== END 2025-01-20 09:23 | disposition home or self-care (01) ==
LOC: HO.HMCH 08:42
PROVIDERS: PCP Internal Medicine; Visit Provider Internal Medicine
DX: E11.9 Type 2 diabetes mellitus without complications (principal); Z00.00 Encounter for general adult medical examination without abnormal findings

== ENCOUNTER → 2025-01-20 08:42 | Outpatient (BNVA) | payer MEDICARE, OTHER, SELFPAY | PROVIDERS: PCP Internal Medicine; Visit Provider Internal Medicine | DX: E11.9 Type 2 diabetes mellitus without complications (principal) | CPT/HCPCS: 83036; 99212 ==

== ENCOUNTER 2025-05-16 08:03 | Outpatient (REF) | payer MEDICARE, OTHER, SELFPAY ==
[2025-05-16 09:11] LABS: Hematocrit 43.6 % (42.0-52.0); Hemoglobin 14.9 g/dl (14.0-18.0); Mean Corpuscular HGB Conc 34.2 g/dl (31.0-36.0); Mean Corpuscular Hemoglobin 28.8 pg (27.0-33.0); Mean Corpuscular Volume 84.2 fL (80.0-98.0); NRBC Abs Auto 0.000 X10*3/uL (0.0-0.012); NRBC Pct Auto 0.0 /100WBC (0.0-0.2); Platelet Count 221 X10*3/uL (160-400); Red Blood Count 5.18 X10*6/uL (4.60-5.80); White Blood Count 10.4 X10*3/uL (4.8-10.8)
[2025-05-16 09:30] LABS: Appearance Urine Clear; Glucose Urine UA >=1000 mg/dL (Negative); PH 5.0 (5.0-9.0); Specific Gravity - Urine >= 1.030 (1.005-1.025); UMIC TRIGGER UA YES
[2025-05-16 09:50] LABS: Alanine Aminotransferase 16 U/L (0-40); Albumin Level 4.7 g/dL (3.5-5.0); Alkaline Phosphatase 63 U/L (39-117); Anion Gap 14 (12-20); Aspartate Amino Transferase 23 U/L (5-37); Blood Urea Nitrogen 22 mg/dL (9-16); Calcium 9.6 mg/dL (8.4-10.2); Carbon Dioxide 27 mmol/L (22-29); Chloride 106 mmol/L (96-108); Cholesterol 106 mg/dL (<200); Estimated Glomerular Filt Rate > 60; HDL Cholesterol 28 mg/dL (>40); Potassium 4.8 mmol/L (3.3-5.1); Sodium 142 mmol/L (135-145); Total Protein 6.8 g/dL (6.5-8.0); Triglycerides 91 mg/dL (<150)
[2025-05-16 09:55] LABS: Thyroid Stimulating Hormone 3.53 uIU/mL (0.32-4.0)
[2025-05-16 10:41] LABS: Microalbum/Creatinine Ratio Ur 7.6 ug/mg cr (<30)
== END 2025-05-16 08:04 | disposition home or self-care (01) ==
LOC: HO.LAB 08:03
PROVIDERS: PCP Internal Medicine; Visit Provider Internal Medicine
DX: E11.9 Type 2 diabetes mellitus without complications (principal)
CPT/HCPCS: 36415; 80048; 80061; 80076; 81001; 82043; 82570; 84443; 85027